=== PATIENT | female | born 2005 | race Two or more races ===

== ENCOUNTER 2025-08-13 07:59 | Emergency (ER) | payer OTHER ==
[~2025-08-13] VITALS: Ht 157.5 cm; Wt 74.8 kg
[2025-08-13] MEDS ORDERED: IBUP-1955 PO (09:47)
[2025-08-13] MEDS ORDERED: CYCL5TAB PO (09:47)
[2025-08-13] MEDS ORDERED: LIDO30AD10 TP (09:47)
[2025-08-13] MEDS ORDERED: LIDOCAINE 5% (PATCH) 1 EA PATCH TP ONE (09:55)
[2025-08-13] MEDS ORDERED: KETOROLAC TROMETHAMINE 15 MG/ML VIAL ONE (09:55)
[2025-08-13] MEDS: LIDOCAINE 5% (PATCH) 1 EA PATCH TP STA (10:02)
[2025-08-13] MEDS: KETOROLAC TROMETHAMINE 15 MG/ML VIAL IM ONE (10:03)
[2025-08-13 10:17] VITALS: BP 110/70; TEMP 98.5; O2SAT 100
== END 2025-08-13 10:07 | disposition home or self-care (01) ==
LOC: ER 08:02
DX: S06.9X9A Unspecified intracranial injury with loss of consciousness of unspecified duration, initial encounter (principal); S80.01XA Contusion of right knee, initial encounter; R07.89 Other chest pain; V89.2XXA Person injured in unspecified motor-vehicle accident, traffic, initial encounter; Y93.89 Activity, other specified; Y92.410 Unspecified street and highway as the place of occurrence of the external cause; Y99.9 Unspecified external cause status
CPT/HCPCS: 99285; 70450; 96372; 71100; J1885